=== PATIENT | male | born 1950 | race African-American/Black ===

== ENCOUNTER 2022-12-14 04:47 | Inpatient (IN) | payer MEDICARE, OTHER ==
[~2022-12-14] VITALS: Ht 180.3 cm; Wt 69.4 kg
[2022-12-14] MEDS ORDERED: ALBUTEROL (0.083%) 2.5MG/3ML NEB HHN STA (05:24)
[2022-12-14] MEDS ORDERED: MAGNESIUM 2 G PREMIX 50 ML IV STA (05:24)
[2022-12-14] MEDS ORDERED: IPRATROPIUM BROMIDE (0.02%) 0.5MG/2.5ML NEB HHN STA (05:24)
[2022-12-14] MEDS ORDERED: METHYLPREDNISOLONE SOD SUCC 125 MG/2 ML VIAL IV STA (05:24)
[2022-12-14 05:57] LABS: BASOPHILS % 0.8 % (0.0-2.0); EOSINOPHILS % 5.2 % (0.0-5.0); HEMATOCRIT. 39.4 % (42.0-52.0); HEMOGLOBIN. 13.1 g/dL (14.0-18.0); LYMPHOCYTES % 16.7 % (20.0-50.0); MEAN CORPUSCULAR HEMOGLOBIN 29.6 pg (28.0-32.0); MEAN CORPUSCULAR VOLUME 89.2 fL (80.0-94.0); MEAN PLATELET VOLUME 8.7 fl (7.4-10.4); MONOCYTES % 11.1 % (2.0-8.0); NEUTROPHILS % 66.2 % (40.0-76.0); PLATELET 315 x1000/uL (130-400); RED BLOOD CELL COUNT 4.41 mill/uL (4.7-6.1); RED CELL DISTRIBUTION WIDTH 15.6 % (11.6-14.6)
[2022-12-14 05:58] LABS: CHLORIDE 107 mEq/L (98-107)
[2022-12-14 06:00] LABS: BG BASE EXCESS -7.1 mmol/L (-2.0-2.0); BG CARBOXYHEMOGLOBIN 0.3 % (0.5-1.5); BG DEOXYHEMOGLOBIN 0.9 % (0.0-5.0); BG FRACTION INSPIRED OXYGEN 100; BG METHEMOGLOBIN 0.5 % (0.0-1.5); BG OXYGEN SATURATION 99.1 % (92.0-98.5); BG OXYHEMOGLOBIN 98.3 % (94.0-97.0); BG PCO2 34.9 mmHg (35.0-45.0); BG PO2 193.5 mmHg (75.0-100.0); BG SAMPLE SITE RIGHT RADIAL; BG TOTAL HEMOGLOBIN 13.4 g/dL (12.0-18.0); BG VENT MODE MASK - NRB
[2022-12-14 14:00] VITALS: BP 143/78
[2022-12-14] MEDS ORDERED: IPRATROPIUM BROMIDE (0.02%) 0.5MG/2.5ML NEB HHN PRN (14:30)
[2022-12-14] MEDS ORDERED: METHYLPREDNISOLONE SOD SUCC 40 MG/ML VIAL IV SCH (15:30)
[2022-12-14 16:00] VITALS: BP 136/79
[2022-12-14] MEDS: CEFTRIAXONE 1,000 MG in DEXTROSE 5% WATER 50 ML IV SCH (17:14)
[2022-12-14] MEDS: AZITHROMYCIN 500 MG in DEXT 5% WATER 250 ML IV SCH (17:14)
[2022-12-14] MEDS: DEXAMETHASONE 6MG TABLET PO SCH (18:57)
[2022-12-14] MEDS ORDERED: FUROSEMIDE 40MG/4ML VIAL IVP NR (19:15)
[2022-12-14] MEDS ORDERED: ONDANSETRON HCL 4MG/2ML INJ IV PRN (19:15)
[2022-12-14] MEDS ORDERED: ACETAMINOPHEN 325MG TABLET PO PRN (19:15)
[2022-12-14] MEDS ORDERED: CLONIDINE 0.1MG TABLET PO PRN (19:15)
[2022-12-14 20:00] VITALS: BP 142/85
[2022-12-14] MEDS: IPRATROPIUM BROMIDE (0.02%) 0.5MG/2.5ML NEB HHN SCH (21:06)
[2022-12-14] MEDS: ENOXAPARIN 80MG/0.8ML SYR SUBCUT SCH (21:26)
[2022-12-14 23:57] LABS: CREATINE KINASE MB FRACTION 3.5 ng/mL (0.5-3.6)
[2022-12-15] VITALS: BP 148/86
[2022-12-15] MEDS: IPRATROPIUM BROMIDE (0.02%) 0.5MG/2.5ML NEB HHN SCH ×3 (00:55→21:57)
[2022-12-15 04:00] VITALS: BP 138/79
[2022-12-15] MEDS: ENOXAPARIN 80MG/0.8ML SYR SUBCUT SCH (05:33)
[2022-12-15 05:45] LABS: PROTHROMBIN TIME 11.2 sec (9.6-11.0)
[2022-12-15 06:19] LABS: CHLORIDE 103 mEq/L (98-107); HEMATOCRIT. 34.8 % (42.0-52.0); HEMOGLOBIN. 11.7 g/dL (14.0-18.0); MEAN CORPUSCULAR HEMOGLOBIN 29.7 pg (28.0-32.0); MEAN CORPUSCULAR VOLUME 88.5 fL (80.0-94.0); MEAN PLATELET VOLUME 9.7 fl (7.4-10.4); PLATELET 224 x1000/uL (130-400); RED BLOOD CELL COUNT 3.94 mill/uL (4.7-6.1); RED CELL DISTRIBUTION WIDTH 15.5 % (11.6-14.6)
[2022-12-15 06:30] LABS: CREATINE KINASE 46 IU/L (39-308); CREATINE KINASE MB FRACTION 2.6 ng/mL (0.5-3.6)
[2022-12-15 08:00] VITALS: BP 150/90
[2022-12-15] MEDS: DEXAMETHASONE 6MG TABLET PO SCH (09:01)
[2022-12-15] MEDS ORDERED: FUROSEMIDE 40MG/4ML VIAL IVP NR (10:30)
[2022-12-15 11:17] LABS: BG BASE EXCESS 0.6 mmol/L (-2.0-2.0); BG CARBOXYHEMOGLOBIN 0.3 % (0.5-1.5); BG DEOXYHEMOGLOBIN 6.8 % (0.0-5.0); BG HCO3 ACT 24.9 mmol/L (22.0-26.0); BG OXYGEN SATURATION 93.2 % (92.0-98.5); BG OXYHEMOGLOBIN 92.9 % (94.0-97.0); BG PCO2 38.9 mmHg (35.0-45.0); BG PH 7.424 (7.350-7.450); BG PO2 67.3 mmHg (75.0-100.0); BG SAMPLE SITE RIGHT BRACHIAL; BG VENT MODE ROOM AIR
[2022-12-15 12:00] VITALS: BP 145/85
[2022-12-15 13:55] LABS: PLATELET ESTIMATE NORMAL
[2022-12-15] MEDS: CEFTRIAXONE 1,000 MG in DEXTROSE 5% WATER 50 ML IV SCH (15:47)
[2022-12-15 16:00] VITALS: BP 122/77
[2022-12-15] MEDS: AZITHROMYCIN 500 MG in DEXT 5% WATER 250 ML IV SCH (17:41)
[2022-12-15] MEDS ORDERED: IPRATROPIUM/ALBUTEROL 0.5-3(2.5)MG/3ML NEB HHN SCH (18:00)
[2022-12-15 20:00] VITALS: BP 144/87
[2022-12-15] MEDS: ALBUTEROL (0.083%) 2.5MG/3ML NEB HHN SCH (21:56)
[2022-12-16] VITALS: BP 146/81
[2022-12-16] MEDS: ALBUTEROL (0.083%) 2.5MG/3ML NEB HHN SCH ×3 (01:07→16:00)
[2022-12-16] MEDS: IPRATROPIUM BROMIDE (0.02%) 0.5MG/2.5ML NEB HHN SCH ×3 (01:07→16:00)
[2022-12-16 04:00] VITALS: BP 129/77
[2022-12-16 07:33] LABS: HEMATOCRIT. 36.6 % (42.0-52.0); HEMOGLOBIN. 12.1 g/dL (14.0-18.0); MEAN CORPUSCULAR HEMOGLOBIN 29.2 pg (28.0-32.0); MEAN CORPUSCULAR VOLUME 88.4 fL (80.0-94.0); MEAN PLATELET VOLUME 10.2 fl (7.4-10.4); PLATELET 222 x1000/uL (130-400); RED BLOOD CELL COUNT 4.14 mill/uL (4.7-6.1); RED CELL DISTRIBUTION WIDTH 15.4 % (11.6-14.6)
[2022-12-16 08:00] VITALS: BP 122/46
[2022-12-16 08:13] LABS: CHLORIDE 101 mEq/L (98-107)
[2022-12-16] MEDS ORDERED: ENOXAPARIN 40MG/0.4ML SYR SUBCUT SCH (09:00)
[2022-12-16] MEDS: DEXAMETHASONE 6MG TABLET PO SCH (09:11)
[2022-12-16 09:23] LABS: PLATELET ESTIMATE NORMAL
[2022-12-16] MEDS ORDERED: VISCOUS LIDOCAINE 2% 15 ML UDC PO PRN (10:30)
[2022-12-16 12:00] VITALS: BP 121/68
[2022-12-16] MEDS ORDERED: POTA-202 MT (14:43)
[2022-12-16] MEDS ORDERED: AZIT500T8 PO (14:43)
[2022-12-16] MEDS ORDERED: DEX6 PO (14:43)
[2022-12-16] MEDS ORDERED: FURO-151 MT (14:43)
[2022-12-16] MEDS ORDERED: LIDO20SO25 PO (14:43)
[2022-12-16] MEDS ORDERED: APIX2.5T MT (14:47)
[2022-12-16] MEDS ORDERED: CEFTRIAXONE 1 G PREMIX 50 ML IV SCH (16:00)
[2022-12-16 16:08] VITALS: BP 140/90
[2022-12-17] MEDS ORDERED: AZITHROMYCIN 500 MG TABLET PO SCH (17:00)
== END 2022-12-16 17:05 | disposition home or self-care (01) | DRG 871 ==
LOC: ER 04:47 → 7EST 08:31 → EDBEDREQTM 08:32 → EDBEDREQ 08:33 → ENRESERV 11:24
PROVIDERS: ADMIT Internal Medicine; ATTEND Internal Medicine
DX: A41.89 Other specified sepsis (principal); J96.01 Acute respiratory failure with hypoxia; U07.1 COVID-19; I47.1 Supraventricular tachycardia; J45.901 Unspecified asthma with (acute) exacerbation; D64.9 Anemia, unspecified; I11.0 Hypertensive heart disease with heart failure; I50.9 Heart failure, unspecified
CPT/HCPCS: 36415; 36600; 71045; 78582; 80048; 80053; 82375; 82550; 82553; 82805; 83880; 84145; 84484; 85025; 85379; 87426; 87804; 93005; 93970; 94640; 94644; 99291; C9803; J0456; J0696; J1650; J1940; J2920; J2930; J3475; J7060